=== PATIENT | male | born 1975 | race African-American/Black ===

== ENCOUNTER 2021-04-04 15:57 | Emergency (ER) | payer OTHER ==
[~2021-04-04] VITALS: Ht 177.8 cm; Wt 108.9 kg
[2021-04-04] MEDS ORDERED: AMOXICILLIN 50500 MG PO (16:37)
[2021-04-04 16:50] VITALS: BP 156/104
== END 2021-04-04 16:50 | disposition home or self-care (01) ==
LOC: M.ERS 15:57
DX: J02.0 Streptococcal pharyngitis (principal)